=== PATIENT | female | born 1960 ===

== ENCOUNTER 2024-02-03 04:34 | Day surgery (SDC) | payer OTHER ==
[2024-01-30 10:16] VITALS: BMI 34.4
[2024-02-03] MEDS ORDERED: ONDANSETRON 4 MG/2 ML VIAL ONE (10:03)
[2024-02-03] MEDS ORDERED: KETOROLAC TROMETHAMINE 30 MG/1 ML VIAL ONE (10:03)
[2024-02-03] MEDS ORDERED: LIDOCAINE HCL/PF 2% SDV 5ML VIAL ONE (10:03)
[2024-02-03] MEDS ORDERED: DEXAMETHASONE SOD PHOSPHATE 4 MG/1 ML VIAL ONE (10:03)
[2024-02-03] MEDS ORDERED: METOCLOPRAMIDE HCL INJECTION 10 MG/2 ML VIAL ONE (10:03)
[2024-02-03] MEDS ORDERED: ACETAMINOPHEN INJECTION 100 ML ONE (11:21)
[2024-02-03] MEDS ORDERED: MIDAZOLAM HCL 2 MG/2 ML SINGLE DOSE VIAL ONE (11:23)
[2024-02-03] MEDS ORDERED: PROPOFOL 20 ML ONE (11:49)
[2024-02-03] MEDS ORDERED: oxyCODONE HCL 5 MG TABLET PO PRN (12:01)
[2024-02-03] MEDS ORDERED: ONDANSETRON 4 MG/2 ML VIAL IVPUSH PRN (12:01)
[2024-02-03] MEDS ORDERED: LACTATED RINGERS SOLUTION 1,000 ML IV SCH (12:15)
[2024-02-03 13:43] VITALS: RESP 18
[2024-02-03 14:37] VITALS: BP 130/87; PULSE 75; TEMP 97
== END 2024-02-03 14:46 | disposition home or self-care (01) ==
LOC: JASU-SURG 04:34
PROVIDERS: ATTEND Obstetrics & Gynecology Obstetrics
PROC: 0UBGXZZ Excision of Vagina, External Approach (ICD-10-PCS; principal; 2024-02-03 10:30)
PROC: 0UB98ZZ Excision of Uterus, Via Natural or Artificial Opening Endoscopic (ICD-10-PCS; 2024-02-03 10:30)
DX: N84.2 Polyp of vagina (principal); N84.0 Polyp of corpus uteri
CPT/HCPCS: 88305-TC; 94760; J0131